=== PATIENT | male | born 1980 | race Caucasian/White ===

== ENCOUNTER 2017-10-25 22:31 | Emergency (ER) | payer SELFPAY ==
[~2017-10-25] VITALS: Ht 175.3 cm; Wt 103.5 kg
[2017-10-25] MEDS ORDERED: LORazepam 1MG TABLET ONE (23:00)
[2017-10-25] MEDS ORDERED: LORazepam 1MG TABLET PO ONE (23:00)
[2017-10-25 23:37] LABS: BASOPHILS # (AUTO) 0.04 x10^3/uL (0-0.1); BASOPHILS % (AUTO) 1 % (0-1); EOSINOPHILS % (AUTO) 4 % (1-7); LYMPHOCYTES # (AUTO) 3.06 x10^3/uL (1-3.4); LYMPHOCYTES % (AUTO) 41 % (22-44); MD NO; MEAN CORPUSCULAR HEMOGLOBIN 31.6 pg (27.5-34.5); MEAN CORPUSCULAR HGB CONC 33.9 g/dL (33.2-36.2); MEAN PLATELET VOLUME 9.5 fL (7.4-10.4); MONOCYTES # (AUTO) 0.72 x10^3/uL (0.2-0.8); MONOCYTES % (AUTO) 10 % (2-9); NEUTROPHILS # (AUTO) 3.34 x10^3/uL (1.8-6.8); NEUTROPHILS % (AUTO) 45 % (42-75); PLATELET COUNT 209 x10^3/uL (130-400); RED BLOOD COUNT 4.64 x10^6/uL (4.38-5.82); RED CELL DISTRIBUTION WIDTH 13.6 % (9.4-14.8)
[2017-10-25 23:43] LABS: ALBUMIN 3.4 g/dL (3.4-5.0); ANION GAP 7 mmol/L (5-15); CALCIUM 8.4 mg/dL (8.5-10.1); CHLORIDE 108 mmol/L (98-107); CREATININE 0.82 mg/dL (0.7-1.3)
[2017-10-25 23:47] LABS: TROPONIN I < 0.015 ng/mL (0.000-0.045)
[2017-10-26 00:14] VITALS: BP 133/78
[2017-10-26] MEDS ORDERED: LORazepam 0.5MG TABLET PO ONE (00:30)
[2017-10-26] MEDS ORDERED: LORazepam 0.5MG TABLET ONE (01:00)
== END 2017-10-26 01:06 | disposition home or self-care (01) ==
LOC: ED 23:59
DX: M94.0 Chondrocostal junction syndrome [Tietze] (principal); R07.2 Precordial pain; F41.1 Generalized anxiety disorder; Z87.891 Personal history of nicotine dependence
CPT/HCPCS: 36415; 71046; 80048; 82040; 84484; 85025; 93005; 99285